=== PATIENT | male | born 1945 | race Caucasian/White ===

== ENCOUNTER 2021-11-28 21:20 | Emergency (ER) | payer MEDICARE, BC ==
[2021-11-28] MEDS ORDERED: Sodium Chloride 0.9% 10 ML Syringe FLUSH PRN (21:28)
[2021-11-28] MEDS: Sodium Chloride 0.9% 1,000 ML IV ONE (21:41)
[2021-11-28 21:54] LABS: CHLORIDE,CL 102 mmol/L (98-107); SODIUM,NA 135 mmol/L (136-145)
[2021-11-28 21:55] LABS: ESTIMATED GFR 84 mL/min (>=60)
[2021-11-28] MEDS: Iopamidol 755 Mg/ML 100 ML Bottle IV ONE (22:38)
[2021-11-28] MEDS: Sodium Chloride 0.9% 50 ML IV SCH (22:38)
[2021-11-28] MEDS: Sodium Chloride 0.9% 1,000 ML IV SCH (23:20)
[2021-11-28] MEDS: Sodium Chloride 0.9% 1,000 ML ONE (23:30)
[2021-11-28] MEDS: Ondansetron 4 MG/2 ML SDV IVPUSH ONE (23:54)
[2021-11-29] MEDS: HYDROmorphone 1 MG/ML Syringe IVPUSH ONE
== END 2021-11-29 00:07 ==
LOC: KA.ED 21:20
DX: S06.5X0A Traumatic subdural hemorrhage without loss of consciousness, initial encounter (principal); S32.511A Fracture of superior rim of right pubis, initial encounter for closed fracture; S32.591A Other specified fracture of right pubis, initial encounter for closed fracture; S33.4XXA Traumatic rupture of symphysis pubis, initial encounter; W17.89XA Other fall from one level to another, initial encounter
CPT/HCPCS: 36415; 51702; 70450; 71260; 72125; 72128; 72131; 74177; 80053; 81001; 82550; 85025; 96361; 96374; 96375; 99284; 99285-25; J1170; J2405; J7030; Q9967

== ENCOUNTER 2023-07-10 15:47 | Emergency (ER) | payer MEDICARE, BC ==
[2023-07-10] MEDS: Diphtheria,Pertussis(Acell),Tetanus Vaccine 0.5 ML Syringe IM ONE (16:09)
[2023-07-10] MEDS ORDERED: Iopamidol 755 Mg/ML 100 ML Bottle IV ONE (16:22)
[2023-07-10] MEDS: Lidocaine 2% with EPINEPHrine 1:100,000 20 ML MDV INJECT ONE (16:23)
[2023-07-10] MEDS ORDERED: Sodium Chloride 0.9% 100 ML IV SCH (16:30)
[2023-07-10] MEDS ORDERED: Sodium Chloride 0.9% 50 ML IV SCH (16:30)
[2023-07-10] MEDS: Bacitracin/Neomycin/Polymyxin B Oint 0.9 GM U/D Packet TOP ONE (17:00)
== END 2023-07-10 17:11 | disposition home or self-care (01) ==
LOC: KA.ED 15:47
DX: S51.012A Laceration without foreign body of left elbow, initial encounter (principal); E78.00 Pure hypercholesterolemia, unspecified; Z79.51 Long term (current) use of inhaled steroids; Z79.82 Long term (current) use of aspirin; Z79.899 Other long term (current) drug therapy; W11.XXXA Fall on and from ladder, initial encounter; F17.210 Nicotine dependence, cigarettes, uncomplicated
CPT/HCPCS: 12001; 71045; 73070-LT; 90471; 90715; 99283; 99283-25; J3490